=== PATIENT | male | born 1965 | race Caucasian/White ===

== ENCOUNTER 2017-09-06 08:59 | Day surgery (SDC) | payer BC ==
[~2017-09-06 08:59] MED LIST: Buffered Lidocaine 0.9% SYRIN* 5 ML/SYR SYRINGE INTRADERM ONE; Cyclopentolate 1% OPTH.SOL* 2 ML BTL ONE; Ketorolac 0.5% OPHTH (NF) 0.5 % 5 ML BTL ONE; Lidocaine 1% MPF* 2 ML VIAL ONE; Neomycin/Polymy/Dex OPHTH.OIN* 3.5 GM ONE; Phenylephrine 2.5% OPTH.SOL* 2 ML BTL ONE; Tetracaine 0.5% OPTH.SOL 4 ML* 1 DROP BTL ONE; Tropicamide 1% OPTH.SOL* BTL ONE
[2017-09-06] MEDS ORDERED: Phenylephr/Ketorolac 1%/0.3% OPH DROP BTL ONE (10:43)
[2017-09-06 11:18] VITALS: BP 112/78
--- NOTE | 2017-09-06 16:17 | OP ---
DATE OF OPERATION: 09/06/17 [facility] DATE OF : 61 SURGEON: Dagoberto Dowling MD MARKETING SUPPORT MANAGER: None. ANESTHESIA: Topical with intravenous sedation. PRE-OP DIAGNOSIS: Cataract, left eye. POST-OP DIAGNOSIS: Cataract, left eye. OPERATIVE PROCEDURE: Phacoemulsification and cataract extraction with posterior chamber intraocular lens implant, left eye. COMPLICATIONS: None. BLOOD LOSS: None. DESCRIPTION OF PROCEDURE: The patient was brought to the operating room and received a small amount of intravenous sedation. A drop of Tetracaine was placed in his left eye. He was prepped and draped in the usual sterile fashion for ophthalmic surgery and attention was directed to the left eye where a speculum was placed. A paracentesis was created at the 5 o'clock position and 0.1 cc of 1 percent preservative-free Lidocaine was injected into the anterior chamber followed by DisCoVisc. The eye was digitally stabilized while a 2.75 mm keratome was used to create a triplanar clear corneal incision at the 3 o'clock position. A continuous curvilinear capsulorrhexis was created with a cystotome and Utrata forceps. BSS on a cannula was used to hydrodissect the lens from the capsule. Phacoemulsification was performed in a [id number] technique to create four fragments which were removed. Residual cortical material was removed with irrigation and aspiration. DisCoVisc was used to inflate the capsular bag and an AUOOTO 20.0 Diopter lens was folded and inserted into the capsular bag. DisCoVisc was removed using irrigation and aspiration. BSS on a cannula was used to hydrate the corneal stroma and seal the wound. At the end of the case the pupil was round and the lens was centered. The eye was of normal pressure and the wound was water tight. The speculum was removed and topical Maxitrol ointment was placed on the surface of the eye. The eye was closed, patched and shielded and the patient was sent to the recovery room in stable condition with post operative instructions and follow-up appointment given. [id number] #: [id number] MTDD
== END 2017-09-06 11:30 | disposition home or self-care (01) ==
LOC: OREAST 08:59
PROVIDERS: ATTEND Ophthalmology
DX: H25.12 Age-related nuclear cataract, left eye (principal); E11.9 Type 2 diabetes mellitus without complications; Z79.4 Long term (current) use of insulin; N18.3 Chronic kidney disease, stage 3 (moderate); I12.9 Hypertensive chronic kidney disease with stage 1 through stage 4 chronic kidney disease, or unspecified chronic kidney disease; I42.9 Cardiomyopathy, unspecified
CPT/HCPCS: A9270-GY; C9447; V2632

== ENCOUNTER 2023-08-28 20:53 | Inpatient (IN) ==
[2023-08-28 21:49] LABS: ABS Eosinophils 0.1 10^3/uL (0.0-0.5); ABS Lymphocytes 0.2 10^3/uL (1.0-4.8); ABS Monocytes 0.7 10^3/uL (0.0-1.1); ABS Neutrophils 10.8 10^3/uL (1.5-7.6); Eosinophil % 0.7 %; Hematocrit 33.5 % (38-53); Lymphocyte % 1.8 %; Mean Corpuscular Hemoglobin 32.1 pg (27-33); Mean Corpuscular Hgb Conc 32.8 g/dL (31-36); Mean Corpuscular Volume 97.8 fL (80-97); Mean Platelet Volume 9.6 fL (7.5-11.2); Platelet Count 175 10^3/uL (150-450); Red Blood Count 3.43 10^6/uL (4.06-5.63); Red Cell Distribution Width 14.5 % (12-17); White Blood Count 11.9 10^3/uL (3.6-10.2)
[2023-08-28 22:27] LABS: Albumin 2.9 g/dL (3.2-5.2); Albumin/Globulin Ratio 0.8 (1-3); C Reactive Protein 157.66 mg/L (<8.01); Calcium 7.5 mg/dL (8.6-10.3); Creatinine, Serum 5.99 mg/dL (0.67-1.17); Globulin 3.7 g/dL (2-4); Potassium 3.5 mmol/L (3.5-5.0); Total Bilirubin 1.1 mg/dL (0.2-1.0); Total Protein 6.6 g/dL (6.4-8.9); eGFR CKD-EPI 10.1 (>60)
[2023-08-28] MEDS: Cefepime 1 GM in Dextrose 1 GM/50 ML BAG IV ONE (22:33)
[2023-08-28] MEDS: Morphine 4 MG/ML VIAL (1 ml) IV ONE (22:33)
[2023-08-28] MEDS: Vancomycin 1,500 MG in NS 0.9% 250 ml 250 ML IVPB ONE (22:38)
[2023-08-29 01:43] LABS: Venous Bicarbonate HCO3 11.3 mmol/L (24-28)
[2023-08-29 02:07] LABS: Ferritin 389.4 ng/mL (24-336)
[2023-08-29] MEDS: Bumetanide IV 0.25 MG/ML 4 ml VIAL (1 mg) IV SLOW PU ONE ×2 (03:12→11:06)
[2023-08-29] MEDS ORDERED: Dextrose 50% Syringe 50 ml 25 GM/50 ML SYRINGE IV PUSH PRN (03:45)
[2023-08-29] MEDS ORDERED: Vancomycin per Pharmacy 1 EA NOTE FOLLOW UP SCH (04:00)
[2023-08-29 08:01] LABS: ABS Eosinophils 0.1 10^3/uL (0.0-0.5); ABS Lymphocytes 0.3 10^3/uL (1.0-4.8); ABS Monocytes 0.7 10^3/uL (0.0-1.1); ABS Neutrophils 9.9 10^3/uL (1.5-7.6); ABS Nucleated RBC 0.02 10^3/ul; Hematocrit 31.1 % (38-53); Hemoglobin 10.4 g/dL (13.2-16.3); Lymphocyte % 2.3 %; Mean Corpuscular Hemoglobin 32.7 pg (27-33); Mean Corpuscular Hgb Conc 33.6 g/dL (31-36); Mean Corpuscular Volume 97.4 fL (80-97); Mean Platelet Volume 9.5 fL (7.5-11.2); Nucleated Red Blood Cells % 0.2 %/100WBC (0.0-0.8); Platelet Count 169 10^3/uL (150-450); Red Blood Count 3.19 10^6/uL (4.06-5.63); Red Cell Distribution Width 14.3 % (12-17)
[2023-08-29 09:17] LABS: Albumin 2.7 g/dL (3.2-5.2); Albumin/Globulin Ratio 0.8 (1-3); Calcium 7.3 mg/dL (8.6-10.3); Creatinine, Serum 5.99 mg/dL (0.67-1.17); Globulin 3.5 g/dL (2-4); Magnesium 1.9 mg/dL (1.9-2.7); Potassium 3.3 mmol/L (3.5-5.0); Total Protein 6.2 g/dL (6.4-8.9); Vancomycin Random 12.7 mcg/mL; eGFR CKD-EPI 10.1 (>60)
[2023-08-29] MEDS: Vancomycin Random Level NOTE FOLLOW UP ONE (09:32)
[2023-08-29] MEDS: Potassium Chlor 20 meq TAB.ER PO SCH (11:04)
[2023-08-29] MEDS: Heparin 5000 UNITS/ML 1 mL VIAL SUBCUT SCH (11:06)
[2023-08-29] MEDS: Sodium Bicarb 650 mg (ANTACID) TAB PO SCH ×2 (12:07→14:59)
[2023-08-29] MEDS: Potassium Chlor 20 meq TAB.ER PO ONE (14:59)
[2023-08-29 16:29] LABS: Urine Appearance Clear; Urine Bilirubin Negative (Negative); Urine Blood 1+ (Negative); Urine Color Light-Yellow; Urine Glucose Negative (Negative); Urine Ketones Negative (Negative); Urine Nitrite Negative (Negative); Urine Protein 1+ (>=30 mg/dL) (Negative); Urine Specific Gravity 1.011 (1.002-1.030); Urine Urobilinogen Negative (Negative)
[2023-08-29 16:52] LABS: Urine Bacteria Absent /HPF (Absent); Urine Red Blood Cell 1+(3-5/hpf) /HPF (0-Trace); Urine Sperm Present /HPF (Absent); Urine Squamous Epithelial Cell Present /HPF (Absent); Urine White Blood Cell Trace(0-5/hpf) /HPF (0-Trace)
[2023-08-29 20:23] LABS: Calcium 7.3 mg/dL (8.6-10.3); Creatinine, Serum 6.32 mg/dL (0.67-1.17); Magnesium 1.9 mg/dL (1.9-2.7); Potassium 3.9 mmol/L (3.5-5.0); eGFR CKD-EPI 9.4 (>60)
[2023-08-29] MEDS: Bumetanide IV 0.25 MG/ML 4 ml VIAL (1 mg) IV SLOW PU SCH (21:32)
[2023-08-29] MEDS: Aspirin EC 81 mg TAB.EC (enteric coated) PO SCH (21:57)
[2023-08-29] MEDS ORDERED: Cefepime 1 GM in Dextrose 1 GM/50 ML BAG IV SCH (22:00)
[2023-08-29] MEDS: Cefepime 1 GM in Dextrose 1 GM/50 ML BAG IV SCH (22:04)
[2023-08-30 06:39] LABS: ABS Eosinophils 0.2 10^3/uL (0.0-0.5); ABS Lymphocytes 0.2 10^3/uL (1.0-4.8); ABS Monocytes 0.5 10^3/uL (0.0-1.1); ABS Neutrophils 9.5 10^3/uL (1.5-7.6); Eosinophil % 1.7 %; Hematocrit 31.9 % (38-53); Hemoglobin 10.7 g/dL (13.2-16.3); Lymphocyte % 2.1 %; Mean Corpuscular Hemoglobin 32.8 pg (27-33); Mean Corpuscular Hgb Conc 33.6 g/dL (31-36); Mean Corpuscular Volume 97.7 fL (80-97); Mean Platelet Volume 9.5 fL (7.5-11.2); Platelet Count 149 10^3/uL (150-450); Red Blood Count 3.27 10^6/uL (4.06-5.63); Red Cell Distribution Width 14.5 % (12-17); White Blood Count 10.5 10^3/uL (3.6-10.2)
[2023-08-30 07:18] LABS: Calcium 7.1 mg/dL (8.6-10.3); Creatinine, Serum 6.43 mg/dL (0.67-1.17); Magnesium 1.8 mg/dL (1.9-2.7); Potassium 3.9 mmol/L (3.5-5.0); Vancomycin Random 11.3 mcg/mL; eGFR CKD-EPI 9.2 (>60)
[2023-08-30] MEDS ORDERED: NS 0.9% 1000 ml BAG 100 ML IV PRN (07:48)
[2023-08-30] MEDS ORDERED: NS 0.9% 1000 ml BAG 200 ML IV PRN (07:48)
[2023-08-30] MEDS ORDERED: Naloxone 0.4 mg VIAL 0.4 mg/ml 1 ml VIAL IV PRN (09:44)
[2023-08-30] MEDS ORDERED: Ondansetron 4 mg VIAL 2 MG/ML 2 ml VIAL IV PRN (09:44)
[2023-08-30] MEDS ORDERED: fentaNYL 100 mcg/2 ml 50 MCG/ML VIAL IV PRN (09:44)
[2023-08-30] MEDS: Magnesium Sulfate 2 gm BAG 2 GM/50 ML BAG IVPB ONE (10:04)
[2023-08-30] MEDS ORDERED: Clindamycin 600 MG/D5W BAG 600 MG/50 ML BAG IV ONE (11:00)
[2023-08-30] MEDS ORDERED: Lidocaine 1% MPF 5 ML VIAL ONE (12:33)
[2023-08-30] MEDS ORDERED: Heparin 2 UNITS/ML 1000 mls 1,000 ML IV ONE (12:33)
[2023-08-30] MEDS: Clindamycin 600 MG/D5W BAG 600 MG/50 ML BAG IV ONE (12:35)
[2023-08-30] MEDS ORDERED: Midazolam 5 mg/5 ml VIAL 1 mg/ml 5 ml VIAL (5 mg) ONE (12:36)
[2023-08-30] MEDS ORDERED: fentaNYL 100 mcg/2 ml 50 MCG/ML VIAL ONE (12:36)
[2023-08-30] MEDS ORDERED: Heparin 1,000 UNIT/ML 10 ml (10,000 UNITS) CATHLAB/DIALYSIS ONE (12:36)
[2023-08-30 13:37] LABS: Hepatitis B Surface Antigen Nonreactive (Nonreactive)
[2023-08-30 13:55] LABS: Hepatitis B Surface Ab Not Immune (Immune)
[2023-08-30] MEDS: Buffered Lidocaine 1% SYRIN 1 ml INTRADERM ONE (14:31)
[2023-08-30] MEDS: Lactated Ringers 1000 ml BAG 1,000 ML IV SCH (14:32)
[2023-08-30] MEDS: Heparin 1,000 UNIT/ML 10 ml (10,000 UNITS) CATHLAB/DIALYSIS DIALYSIS PRN (15:35)
[2023-08-30] MEDS: Albumin Human 25% 25 GM/100 ML BTL IV PRN (16:48)
[2023-08-30] MEDS: Vancomycin Random Level NOTE FOLLOW UP ONE (17:56)
[2023-08-30] MEDS: Bumetanide IV 0.25 MG/ML 4 ml VIAL (1 mg) IV SLOW PU SCH (22:37)
[2023-08-30] MEDS: cefTRIAXone 1 gm/50 mL D5W 1 GM/50 ML BAG IV SCH (23:17)
[2023-08-31 09:12] LABS: ABS Eosinophils 0.1 10^3/uL (0.0-0.5); ABS Lymphocytes 0.1 10^3/uL (1.0-4.8); ABS Monocytes 0.6 10^3/uL (0.0-1.1); ABS Neutrophils 10.2 10^3/uL (1.5-7.6); ABS Nucleated RBC 0.01 10^3/ul; Eosinophil % 1.1 %; Hematocrit 30.6 % (38-53); Hemoglobin 10.3 g/dL (13.2-16.3); Lymphocyte % 1.2 %; Mean Corpuscular Hemoglobin 32.4 pg (27-33); Mean Corpuscular Hgb Conc 33.6 g/dL (31-36); Mean Corpuscular Volume 96.4 fL (80-97); Mean Platelet Volume 9.6 fL (7.5-11.2); Nucleated Red Blood Cells % 0.1 %/100WBC (0.0-0.8); Platelet Count 165 10^3/uL (150-450); Red Blood Count 3.18 10^6/uL (4.06-5.63); Red Cell Distribution Width 14.4 % (12-17); White Blood Count 11.1 10^3/uL (3.6-10.2)
[2023-08-31 11:12] LABS: Albumin 3.2 g/dL (3.2-5.2); Calcium 7.5 mg/dL (8.6-10.3); Creatinine, Serum 5.03 mg/dL (0.67-1.17); Globulin 3.3 g/dL (2-4); Magnesium 1.9 mg/dL (1.9-2.7); Potassium 3.9 mmol/L (3.5-5.0); Total Protein 6.5 g/dL (6.4-8.9); eGFR CKD-EPI 12.4 (>60)
[2023-08-31] MEDS ORDERED: Dexamethasone IV 4 MG/ML VIAL 1 ml VIAL ONE (16:14)
[2023-08-31] MEDS ORDERED: Ondansetron 4 mg VIAL 2 MG/ML 2 ml VIAL ONE (16:14)
[2023-08-31] MEDS ORDERED: Lidocaine 2% PF 5 ML VIAL ONE (16:14)
[2023-08-31] MEDS ORDERED: Rocuronium 50 mg VIAL 10 mg/ml 5 ml VIAL (50 mg) ONE (16:14)
[2023-08-31] MEDS ORDERED: Propofol 10 MG/ML 20 ML BTL ONE (16:14)
[2023-08-31] MEDS ORDERED: fentaNYL 100 mcg/2 ml 50 MCG/ML VIAL ONE (16:15)
[2023-08-31] MEDS ORDERED: Midazolam 2 mg/2 ml VIAL 1 mg/ml 2 ml VIAL (2 mg) ONE (16:15)
[2023-08-31] MEDS ORDERED: ceFAZolin 2 GM PREMIX 2 GM/50 ML BAG ONE (16:25)
[2023-08-31] MEDS ORDERED: Heparin *DIALYSIS* ONLY 1,000 UNITS/ML VIAL ONE (16:31)
[2023-08-31] MEDS ORDERED: Bupivacaine 0.25% SDV 30 ML ONE (16:31)
[2023-08-31] MEDS ORDERED: Glycopyrrolate IV 0.2 MG/ML 1 ML VIAL ONE (17:00)
[2023-08-31] MEDS ORDERED: EPINEPHrine SYR 0.1MG/ML 10 ml SYRINGE IV ONE (17:06)
[2023-08-31] MEDS ORDERED: Atropine 0.1 MG/ML 10 ml SYR (1 mg) ONE (17:06)
[2023-08-31 18:50] LABS: Body Fluid Appearance Cloudy; Body Fluid Color Yellow; Body Fluid Source Peritonial Fluid
[2023-08-31 19:10] LABS: Body Fluid Total Nucleated 326 /mcL
[2023-08-31 20:33] LABS: Body Fluid Mono 74 %; Body Fluid Other Cells 8; Body Fluid Total Cells Counted 200
[2023-09-01 07:01] LABS: ABS Lymphocytes 0.1 10^3/uL (1.0-4.8); ABS Monocytes 0.2 10^3/uL (0.0-1.1); ABS Neutrophils 10.5 10^3/uL (1.5-7.6); ABS Nucleated RBC 0.01 10^3/ul; Hematocrit 33.3 % (38-53); Lymphocyte % 1.1 %; Mean Corpuscular Hemoglobin 32.3 pg (27-33); Mean Corpuscular Hgb Conc 33.2 g/dL (31-36); Mean Corpuscular Volume 97.5 fL (80-97); Mean Platelet Volume 10.2 fL (7.5-11.2); Nucleated Red Blood Cells % 0.1 %/100WBC (0.0-0.8); Platelet Count 168 10^3/uL (150-450); Red Blood Count 3.42 10^6/uL (4.06-5.63); Red Cell Distribution Width 14.5 % (12-17); White Blood Count 10.8 10^3/uL (3.6-10.2)
[2023-09-01 07:25] LABS: Calcium 7.5 mg/dL (8.6-10.3); Creatinine, Serum 5.53 mg/dL (0.67-1.17); Magnesium 1.9 mg/dL (1.9-2.7); Potassium 4.7 mmol/L (3.5-5.0); eGFR CKD-EPI 11.1 (>60)
[2023-09-01] MEDS ORDERED: Dextrose 50% Syringe 50 ml 25 GM/50 ML SYRINGE IV PUSH PRN (17:26)
[2023-09-01] MEDS: Bumetanide IV 0.25 MG/ML 4 ml VIAL (1 mg) IV SLOW PU SCH (20:51)
[2023-09-01] MEDS: Heparin 5000 UNITS/ML 1 mL VIAL SUBCUT SCH (21:06)
[2023-09-02 08:18] LABS: ABS Lymphocytes 0.3 10^3/uL (1.0-4.8); ABS Monocytes 0.6 10^3/uL (0.0-1.1); ABS Neutrophils 10.4 10^3/uL (1.5-7.6); ABS Nucleated RBC 0.01 10^3/ul; Eosinophil % 0.1 %; Hematocrit 30.9 % (38-53); Hemoglobin 10.4 g/dL (13.2-16.3); Lymphocyte % 2.5 %; Mean Corpuscular Hemoglobin 32.4 pg (27-33); Mean Corpuscular Hgb Conc 33.7 g/dL (31-36); Mean Corpuscular Volume 96.2 fL (80-97); Mean Platelet Volume 9.4 fL (7.5-11.2); Nucleated Red Blood Cells % 0.1 %/100WBC (0.0-0.8); Platelet Count 171 10^3/uL (150-450); Red Blood Count 3.21 10^6/uL (4.06-5.63); Red Cell Distribution Width 14.4 % (12-17); White Blood Count 11.3 10^3/uL (3.6-10.2)
[2023-09-02 08:52] LABS: Calcium 7.8 mg/dL (8.6-10.3); Creatinine, Serum 2.87 mg/dL (0.67-1.17); Magnesium 1.5 mg/dL (1.9-2.7); Potassium 3.4 mmol/L (3.5-5.0); eGFR CKD-EPI 24.3 (>60)
[2023-09-02 14:23] LABS: Fluid Type, Albumin ASCITES
[2023-09-02 18:51] LABS: ABS Lymphocytes 0.3 10^3/uL (1.0-4.8); ABS Monocytes 0.6 10^3/uL (0.0-1.1); ABS Neutrophils 8.5 10^3/uL (1.5-7.6); Eosinophil % 0.5 %; Hematocrit 32.4 % (38-53); Hemoglobin 10.9 g/dL (13.2-16.3); Lymphocyte % 3.2 %; Mean Corpuscular Hemoglobin 32.6 pg (27-33); Mean Corpuscular Hgb Conc 33.6 g/dL (31-36); Mean Corpuscular Volume 96.8 fL (80-97); Mean Platelet Volume 9.6 fL (7.5-11.2); Platelet Count 167 10^3/uL (150-450); Red Blood Count 3.35 10^6/uL (4.06-5.63); Red Cell Distribution Width 14.5 % (12-17); White Blood Count 9.5 10^3/uL (3.6-10.2)
[2023-09-02 19:35] LABS: Calcium 7.5 mg/dL (8.6-10.3); Creatinine, Serum 3.07 mg/dL (0.67-1.17); Magnesium 1.5 mg/dL (1.9-2.7); Potassium 3.8 mmol/L (3.5-5.0); eGFR CKD-EPI 22.4 (>60)
[2023-09-03 17:32] LABS: Albumin 2.8 g/dL (3.2-5.2); Albumin/Globulin Ratio 0.9 (1-3); Calcium 7.8 mg/dL (8.6-10.3); Creatinine, Serum 2.43 mg/dL (0.67-1.17); Globulin 3.1 g/dL (2-4); Potassium 3.9 mmol/L (3.5-5.0); Total Bilirubin 0.7 mg/dL (0.2-1.0); Total Protein 5.9 g/dL (6.4-8.9); eGFR CKD-EPI 29.7 (>60)
[2023-09-04 10:25] LABS: Calcium 7.6 mg/dL (8.6-10.3); Creatinine, Serum 2.89 mg/dL (0.67-1.17); Magnesium 1.5 mg/dL (1.9-2.7); Potassium 4.1 mmol/L (3.5-5.0); eGFR CKD-EPI 24.1 (>60)
[2023-09-04] MEDS: Magnesium Sulf 4 GM/100 ML IV 4,000 MG/100 ML BAG IVPB ONE (12:47)
[2023-09-07 06:06] LABS: ABS Eosinophils 0.2 10^3/uL (0.0-0.5); ABS Lymphocytes 0.4 10^3/uL (1.0-4.8); ABS Monocytes 0.8 10^3/uL (0.0-1.1); ABS Nucleated RBC 0.01 10^3/ul; Eosinophil % 1.6 %; Hemoglobin 10.2 g/dL (13.2-16.3); Lymphocyte % 3.8 %; Mean Corpuscular Hemoglobin 32.4 pg (27-33); Mean Corpuscular Volume 98.3 fL (80-97); Mean Platelet Volume 9.7 fL (7.5-11.2); Nucleated Red Blood Cells % 0.1 %/100WBC (0.0-0.8); Platelet Count 211 10^3/uL (150-450); Red Blood Count 3.16 10^6/uL (4.06-5.63); Red Cell Distribution Width 14.2 % (12-17); White Blood Count 11.4 10^3/uL (3.6-10.2)
[2023-09-07 06:25] LABS: Creatinine, Serum 2.57 mg/dL (0.67-1.17); Magnesium 1.6 mg/dL (1.9-2.7); Potassium 3.9 mmol/L (3.5-5.0); eGFR CKD-EPI 27.8 (>60)
[2023-09-07] MEDS: Albumin Human 25% 25 GM/100 ML BTL IV PRN (14:02)
[2023-09-07] MEDS: Magnesium Sulfate 2 gm BAG 2 GM/50 ML BAG IVPB ONE (17:54)
[2023-09-08 06:33] LABS: Calcium 8.3 mg/dL (8.6-10.3); Creatinine, Serum 2.54 mg/dL (0.67-1.17); Potassium 4.1 mmol/L (3.5-5.0); eGFR CKD-EPI 28.2 (>60)
[2023-09-08] MEDS ORDERED: Albumin Human 25% 25 GM/100 ML BTL IV PRN (16:42)
[2023-09-09] MEDS ORDERED: NS 0.9% 1000 ml BAG 200 ML IV PRN (09:04)
[2023-09-09] MEDS ORDERED: NS 0.9% 1000 ml BAG 100 ML IV PRN (09:04)
[2023-09-09] MEDS: Albumin Human 25% 25 GM/100 ML BTL IV PRN (10:14)
[2023-09-10 07:20] LABS: ABS Eosinophils 0.1 10^3/uL (0.0-0.5); ABS Lymphocytes 0.3 10^3/uL (1.0-4.8); ABS Monocytes 0.9 10^3/uL (0.0-1.1); ABS Neutrophils 8.7 10^3/uL (1.5-7.6); Eosinophil % 1.3 %; Hematocrit 29.4 % (38-53); Hemoglobin 9.8 g/dL (13.2-16.3); Lymphocyte % 3.1 %; Mean Corpuscular Hemoglobin 32.7 pg (27-33); Mean Corpuscular Hgb Conc 33.3 g/dL (31-36); Mean Corpuscular Volume 98.2 fL (80-97); Mean Platelet Volume 9.4 fL (7.5-11.2); Platelet Count 227 10^3/uL (150-450); Red Cell Distribution Width 13.8 % (12-17); White Blood Count 10.1 10^3/uL (3.6-10.2)
[2023-09-10 16:20] LABS: Rapid COVID-19 Molecular Undetected (Undetected)
[2023-09-12] MEDS: Collagenase 250 units/gm OINT 1 tube TOPICAL SCH (15:36)
[2023-09-12] MEDS: Magnesium Hydroxide LIQ 30 ML UDC PO PRN (22:01)
[2023-09-12] MEDS: Magnesium Hydroxide LIQ 30 ML UDC ONE (22:02)
[2023-09-13 06:09] LABS: Hematocrit 29.6 % (38-53); Hemoglobin 9.8 g/dL (13.2-16.3); Mean Corpuscular Hemoglobin 32.1 pg (27-33); Mean Corpuscular Hgb Conc 33.1 g/dL (31-36); Mean Platelet Volume 9.2 fL (7.5-11.2); Platelet Count 276 10^3/uL (150-450); Red Blood Count 3.05 10^6/uL (4.06-5.63); Red Cell Distribution Width 13.3 % (12-17); White Blood Count 12.5 10^3/uL (3.6-10.2)
[2023-09-13 06:26] LABS: Calcium 8.5 mg/dL (8.6-10.3); Creatinine, Serum 3.28 mg/dL (0.67-1.17); Potassium 4.5 mmol/L (3.5-5.0); eGFR CKD-EPI 20.7 (>60)
[2023-09-13] MEDS: Heparin 1,000 UNIT/ML 10 ml (10,000 UNITS) CATHLAB/DIALYSIS DIALYSIS PRN (08:05)
[2023-09-14 14:44] VITALS: BP 110/62
[2023-09-15 12:49] LABS: ALP Liver 1 161.2 IU/L (16.2-70.2); ALP Liver 1% 49.3 % (27.8-76.3); ALP Liver 2 111.2 IU/L (0.0-5.8); ALP Placental Not Present; Alkaline Phosphate 327 U/L (40 - 129)
== END 2023-09-14 14:20 | DRG 951 ==
LOC: ED 20:53 → SUATTDRO 08-29 00:13 → EDHOLD 08-29 00:13 → MEDTELE 08-29 17:50
PROVIDERS: ADMIT Internal Medicine; ATTEND Student in an Organized Health Care Education/Training Program

== ENCOUNTER 2023-10-04 16:14 | Inpatient (IN) ==
[2023-10-04] MEDS ORDERED: Polyethylene Glycol 3350 17 GM PACKET PO PRN (17:37)
[2023-10-04 17:54] LABS: ABS Eosinophils 0.1 10^3/uL (0.0-0.5); ABS Lymphocytes 0.2 10^3/uL (1.0-4.8); ABS Monocytes 0.7 10^3/uL (0.0-1.1); ABS Neutrophils 17.2 10^3/uL (1.5-7.6); ABS Nucleated RBC 0.01 10^3/ul; Eosinophil % 0.5 %; Hematocrit 29.3 % (38-53); Hemoglobin 9.4 g/dL (13.2-16.3); Mean Corpuscular Hemoglobin 31.8 pg (27-33); Mean Corpuscular Hgb Conc 32.2 g/dL (31-36); Mean Corpuscular Volume 98.7 fL (80-97); Mean Platelet Volume 8.4 fL (7.5-11.2); Platelet Count 311 10^3/uL (150-450); Red Blood Count 2.97 10^6/uL (4.06-5.63); Red Cell Distribution Width 14.8 % (12-17); White Blood Count 18.1 10^3/uL (3.6-10.2)
[2023-10-04 18:42] LABS: Calcium 8.2 mg/dL (8.6-10.3); Creatinine, Serum 2.98 mg/dL (0.67-1.17); Potassium 4.3 mmol/L (3.5-5.0); eGFR CKD-EPI 23.2 (>60)
[2023-10-04] MEDS: Mineral Oil ENEMA 118 ML/BOTTLE BOTTLE PR ONE (19:13)
[2023-10-04] MEDS: Iodixanol (CONTRAST) 320 MG/ML 100 ML SDV IV ONE (20:26)
[2023-10-04] MEDS: Piperacillin/Tazobac 3.375 BAG 3.375 GM/100 ML BAG IV ONE (21:03)
[2023-10-04] MEDS: Ondansetron 4 mg VIAL 2 MG/ML 2 ml VIAL IV ONE (22:18)
[2023-10-04] MEDS: Morphine 4 MG/ML VIAL (1 ml) IV ONE (22:18)
[2023-10-05] MEDS ORDERED: Heparin 5000 UNITS/ML 1 mL VIAL IV SCH (05:00)
[2023-10-05] MEDS ORDERED: Dextrose 50% Syringe 50 ml 25 GM/50 ML SYRINGE IV PUSH PRN (05:22)
[2023-10-05] MEDS: Heparin DRIP 25,000 UNITS BAG 25,000 UNITS/250 ML BAG IV SCH (06:48)
[2023-10-05] MEDS: Cefepime 1 GM in Dextrose 1 GM/50 ML BAG IV SCH (06:50)
[2023-10-05 07:15] LABS: ABS Eosinophils 0.2 10^3/uL (0.0-0.5); ABS Lymphocytes 0.4 10^3/uL (1.0-4.8); ABS Monocytes 0.6 10^3/uL (0.0-1.1); ABS Neutrophils 15.3 10^3/uL (1.5-7.6); ABS Nucleated RBC 0.01 10^3/ul; Hematocrit 26.4 % (38-53); Hemoglobin 8.6 g/dL (13.2-16.3); Lymphocyte % 2.2 %; Mean Corpuscular Hgb Conc 32.4 g/dL (31-36); Mean Corpuscular Volume 98.9 fL (80-97); Mean Platelet Volume 8.6 fL (7.5-11.2); Platelet Count 283 10^3/uL (150-450); Red Blood Count 2.67 10^6/uL (4.06-5.63); White Blood Count 16.5 10^3/uL (3.6-10.2)
[2023-10-05 07:40] LABS: Calcium 8.1 mg/dL (8.6-10.3); Creatinine, Serum 3.43 mg/dL (0.67-1.17); Magnesium 2.3 mg/dL (1.9-2.7); Potassium 5.1 mmol/L (3.5-5.0); eGFR CKD-EPI 19.6 (>60)
[2023-10-05] MEDS ORDERED: NS 0.9% 1000 ml BAG 200 ML IV PRN (07:46)
[2023-10-05] MEDS ORDERED: Albumin Human 25% 25 GM/100 ML BTL IV PRN (07:46)
[2023-10-05] MEDS ORDERED: NS 0.9% 1000 ml BAG 100 ML IV PRN (07:46)
[2023-10-05] MEDS ORDERED: Sulfur Hexaflouride MICROSPHR 25 MG VIAL ONE (08:26)
[2023-10-05] MEDS: Heparin 1,000 UNIT/ML 10 ml (10,000 UNITS) CATHLAB/DIALYSIS DIALYSIS PRN (09:58)
[2023-10-05 11:13] LABS: Hepatitis B Surface Antigen Nonreactive (Nonreactive)
[2023-10-05] MEDS: Aspirin EC 81 mg TAB.EC (enteric coated) PO SCH (11:16)
[2023-10-05 11:31] LABS: Hepatitis B Surface Ab Not Immune (Immune)
[2023-10-05] MEDS: Morphine 2 MG/ML SYRINGE IV ONE (16:39)
[2023-10-05] MEDS ORDERED: Ondansetron ODT 4 mg TAB 4 MG TAB SL PRN (16:50)
[2023-10-05] MEDS ORDERED: Senna TAB 8.6 mg TAB PO PRN (16:50)
[2023-10-05] MEDS: Scopolamine 1 mg/72hr PATCH TRANSDERM SCH (18:10)
[2023-10-05] MEDS: Morphine 2 MG/ML SYRINGE IV PRN (20:56)
[2023-10-05] MEDS ORDERED: Cholecalciferol (VIT D3) 1,000 unit TAB PO SCH (21:00)
[2023-10-06] MEDS ORDERED: Cefepime 1 GM in Dextrose 1 GM/50 ML BAG IV SCH (06:00)
[2023-10-07 23:46] VITALS: BP 86/35
[2023-10-09] MEDS: Atropine 1% (ORAL/SL) 15 ML BTL SL PRN (15:22)
[2023-10-09] MEDS: Atropine 1% OPHTH.SOL 1 DROP BTL 2-5 ML BOTH EYES SCH (16:18)
== END 2023-10-10 05:40 | disposition expired | DRG 501 ==
LOC: ED 16:14 → EDHOLD 16:14 → SUATTDRO 10-05 00:18 → EDHOLD 10-05 08:02 → SSU 10-05 08:20
PROVIDERS: ADMIT Internal Medicine; ATTEND Internal Medicine